=== PATIENT | female | born 1985 | race Hispanic/Latino ===

== ENCOUNTER 2021-03-26 21:47 | Emergency (ER) | payer OTHER ==
[2021-03-27 00:53] LABS: Urine Blood Negative (Negative); Urine Glucose Negative (Negative); Urine Protein 2+ (Negative); Urine Specific Gravity 1.015 (1.005-1.030); Urine pH >=9.0 (5.0-7.0)
[2021-03-27 00:53] LABS: Protime INR 0.97
[2021-03-27 00:54] LABS: Absolute Lymphocytes (CBC) 3.1 K/uL (0.7-4.9); Hematocrit 36.2 % (36.0-45.0); Lymphocytes % 17.7 % (15.3-44.8); MPV 7.9 fL (7.6-11.3); RBC Red Blood Cell Count 4.32 M/uL (3.86-4.86)
[2021-03-27] MEDS ORDERED: NA CHLORIDE 0.9% 1,000 ML ONE (00:58)
[2021-03-27] MEDS ORDERED: KETOROLAC 30 MG/ML INJ ONE (00:58)
[2021-03-27] MEDS ORDERED: ONDANSETRON 4 MG/2 ML VIAL ONE (00:58)
[2021-03-27 01:09] LABS: ALT/SGPT 24 U/L (12-78); AST/SGOT 12 U/L (15-37); Albumin 3.1 g/dL (3.4-5.0); Alkaline Phosphatase 131 U/L (45-117); BUN Blood Urea Nitrogen 9 mg/dL (7-18); Bicarbonate 24 mmol/L (21-32); Bilirubin Direct < 0.1 mg/dL (0-0.2); Bilirubin Total 0.1 mg/dL (0.2-1.0); Glucose Level 125 mg/dL (74-106); Magnesium 2.4 mg/dL (1.8-2.4); NT PRO-BNP 70 pg/mL (<125); Potassium 4.3 mmol/L (3.5-5.1); Protein, Total 7.5 g/dL (6.4-8.2); Sodium Level 139 mmol/L (136-145)
[2021-03-27 01:13] LABS: Urine Specific Gravity/Preg 1.015 (1.005-1.030)
[2021-03-27 03:45] LABS: Absolute Lymphocytes (CBC) 2.7 K/uL (0.7-4.9); Hematocrit 33.7 % (36.0-45.0); Lymphocytes % 16.2 % (15.3-44.8); RBC Red Blood Cell Count 4.03 M/uL (3.86-4.86)
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
[2021-03-27 05:59] VITALS: TEMP 98.1; O2SAT 98
[2021-03-27 06:05] VITALS: BP 128/85
--- NOTE | 2021-03-27 08:23 | EKG ---
Test Date: 2021-03-27 Test Time: 00:45:21 Photolettering Machine Operator: MEASUREMENT RESULTS: Intervals: Rate: 107 WA: 126 QRSD: 88 QT: 316 QTc: 421 Logan: P: 44 WA: 126 QRS: 47 T: -1 INTERPRETIVE STATEMENTS: Sinus tachycardia Nonspecific T wave abnormality Abnormal ECG No previous ECG available for comparison Electronically Signed On 03-27-21 08:22:18 WHITEWASHER by Santos Wilde
--- NOTE | 2021-03-27 08:29 | RAD REPORT ---
EXAM DESCRIPTION: RAD - Chest Single View - 03/26/2021 11:43 pm CLINICAL HISTORY: COUGH COMPARISON: None TECHNIQUE: AP portable chest image was obtained 03/26/2021 11:43 pm . FINDINGS: Portable exam has significant limitation due to shallow inspiration, under penetrated tech nique and very large body habitus. No peripheral mass or consolidations seen. Accentuated interstitia l pattern may be artifact of exam limitations or could indicate a mild interstitial edema or infiltra te. Heart and vasculature are normal. No measurable pleural effusion and no pneumothorax. No acute bony abnormality seen. No acute aortic findings suspected. IMPRESSION: Limited portable study showing no focal lung parenchymal process and no significant pulm onary edema. Mild interstitial edema or infiltrate could be masked by exam limitations.
--- NOTE | 2021-03-27 12:37 | RAD REPORT ---
EXAM DESCRIPTION: CT - Head Brain Wo Cont - 03/27/2021 6:07 am CLINICAL HISTORY: HEADACHE COMPARISON: None available TECHNIQUE: Axial CT of the head obtained from the skull apex to the skull base without contrast. Thi s exam was performed according to our departmental dose-optimization program, which includes automate d exposure control, adjustment of the mA and/or kV according to patient size and/or use of iterative reconstruction technique. FINDINGS: No acute intracranial hemorrhage identified. No mass, mass effect, shift of the midline, a bnormal extra-axial fluid collection or CT evidence of acute ischemic change identified. The ventricu lar system is unremarkable. No acute abnormalities of the supratentorial white matter, basal gangli a, cerebellum, or brainstem. The visualized paranasal sinuses and the mastoid air cells are relatively well aerated. No skull fr acture identified. Hyperdensity in the right globe likely related to postoperative change. Left rehana be is unremarkable.. IMPRESSION: 1. No acute intracranial abnormality identified. 2. Postoperative change suggesting vitrectomy of the right globe. Correlation for appropriate surgi ania history. Correlation for acuity is suboptimal due to lack of comparison imaging. Electronically signed by: Edwin Mccann 03/27/2021 12:15 AM PRINT PRODUCTION MANAGER Due to temporary technical issues with the PACS/Fluency reporting system, reports are being signed by the in house radiologists without review as a courtesy to insure prompt reporting. The interpreting radiologist is fully responsible for the content of the report.
--- NOTE | 2021-03-27 12:39 | RAD REPORT ---
EXAM DESCRIPTION: CT - Head angio - 03/27/2021 6:08 am CLINICAL HISTORY: Headache; Visual disturbances COMPARISON: CT Head/Brain Without Contrast 03/26/2021 at 11:40 PM TECHNIQUE: Head CTA axial images acquired after IV contrast. Coronal and sagittal CTA MIPs and MPRs created. 3D volume rendered images created. Exam performed according to departmental dose-optimizatio n program which includes automated exposure control, adjustment of mA and/or kV according to patient size, and/or use of iterative reconstruction technique. FINDINGS: Both intracranial vertebral, basilar, and both posterior cerebral arteries unremarkable. Both intracranial internal carotid, both middle cerebral, anterior communicating, and both anterior c erebral arteries unremarkable. No evidence of large intracranial arterial occlusion, aneurysm, or AVM. Right Lens postsurgical changes. IMPRESSION: Unremarkable CTA Head. Electronically signed by: Lalo Summers MD 03/27/2021 2:17 AM LEATHER SKINNER Due to temporary technical issues with the PACS/Fluency reporting system, reports are being signed by the in house radiologists without review as a courtesy to insure prompt reporting. The interpreting radiologist is fully responsible for the content of the report.
--- NOTE | 2021-03-27 12:52 | RAD REPORT ---
EXAM DESCRIPTION: CT - Neck Angio - 03/27/2021 6:08 am CLINICAL HISTORY: PAIN COMPARISON: None Available. TECHNIQUE: Multiple helical axial tomographic images were obtained of the neck following administrat ion of intravenous contrast per angiographic protocol. MIP reformatted images were obtained. This exa m was performed according to our departmental dose-optimization program, which includes automated exp osure control, adjustment of the mA and/or kV according to patient size and/or use of iterative recon struction technique. FINDINGS: Carotid and vertebral arterial vasculature of the neck appears patent without significant stenosis or occlusion. Retropharyngeal courses of the bilateral internal carotid arteries noted. Thyroid gland appears unremarkable. Salivary glands appear unremarkable. No evidence of adenopathy. R etropharyngeal space appears normal. Epiglottis appears normal. Larynx and vocal folds appear unremar kable. Atrophic right globe demonstrated. Visualized lungs are clear. Osseous structures are unremarkable. IMPRESSION: No evidence of significant arterial stenosis or occlusion within the neck. Electronically signed by: Tigre Patricia MD 03/27/2021 2:42 AM DIRECTOR QUALITY ASSURANCE Due to temporary technical issues with the PACS/Fluency reporting system, reports are being signed by the in house radiologists without review as a courtesy to insure prompt reporting. The interpreting radiologist is fully responsible for the content of the report.
== END 2021-03-27 04:22 | disposition home or self-care (01) ==
LOC: ER 21:47
DX: I10 Essential (primary) hypertension (principal); Z20.822 Contact with and (suspected) exposure to COVID-19; D72.829 Elevated white blood cell count, unspecified; E66.9 Obesity, unspecified; Z71.6 Tobacco abuse counseling; Z72.0 Tobacco use
CPT/HCPCS: 93005; 85025 ×2; 80048; 36415; 83735; 81025; 85610; 80076; 85652; 81003; 84484; 83880; 86140; 70450; 70496; 70498; 71045; U0003; Q9967; J7030; J2405

== ENCOUNTER 2021-11-03 10:51 | Emergency (ER) | payer OTHER ==
[2021-11-03 11:32] LABS: Urine Blood Negative (Negative); Urine Glucose Negative (Negative); Urine Protein Negative (Negative); Urine Specific Gravity >=1.030 (1.005-1.030); Urine pH 5.5 (5.0-7.0)
[2021-11-03 11:59] LABS: Absolute Lymphocytes (CBC) 2.5 K/uL (0.7-4.9); Hematocrit 34.5 % (36.0-45.0); Lymphocytes % 16.2 % (15.3-44.8); MCV 81.5 fL (80-100); MPV 7.8 fL (7.6-11.3); RBC Red Blood Cell Count 4.23 M/uL (3.86-4.86)
[2021-11-03 12:20] LABS: Potassium 4.1 mmol/L (3.5-5.1); Troponin High Sensitivity 5.9 pg/mL (<58.9)
--- NOTE | 2021-11-03 12:23 | RAD REPORT ---
EXAM DESCRIPTION: RAD - Chest Single View - 11/03/2021 11:59 am CLINICAL HISTORY: Dyspnea COMPARISON: Chest Single View dated 03/26/2021 FINDINGS: Lines: None. Lungs: No evidence of edema or pneumonia. Pleural: No significant pleural effusions or pneumothorax. Cardiac: The heart size is within normal limits. Mediastinum: Within normal limits. Bones: No acute fractures. Other: None IMPRESSION: No acute cardiopulmonary disease.
--- NOTE | 2021-11-03 12:58 | RAD REPORT ---
EXAM DESCRIPTION: US - Extrem Venous W Compress Arik - 11/03/2021 12:42 pm CLINICAL HISTORY: WEAKNESS COMPARISON: <Comparisons> TECHNIQUE: Real-time sonographic evaluation of the lower extremity deep venous systems was performed using color Doppler, grayscale, and compression. FINDINGS: Bilateral lower extremities. Normal compressibility, flow augmentation, phasic flow and spontaneous flow is identified in both the left and right lower extremity deep venous systems. No intraluminal filling defects seen. IMPRESSION: No DVT in either lower extremity.
--- NOTE | 2021-11-03 13:06 | RAD REPORT ---
EXAM DESCRIPTION: CT - Chest For Pe Angio - 11/03/2021 12:53 pm CLINICAL HISTORY: SOB COMPARISON: No comparisons TECHNIQUE: Dynamically enhanced axial 3 mm thick images of the chest were obtained during administra tion of <100> mL Isovue 370 IV contrast. Coronal and oblique reconstruction images were generated and reviewed. Exam utilizes a protocol for optimal evaluation of pulmonary arterial tree. Maximum intensity projections 3D imaging was utilized All CT scans are performed using dose optimization technique as appropriate and may include automated exposure control or mA/KV adjustment according to patient size. FINDINGS: Chest Wall: No suspicious thyroid nodules or pathologic lymphadenopathy. Lungs: No acute abnormality. 3 mm right upper lobe pulmonary nodules of doubtful clinical significanc e. 3 millimeters subpleural nodule in the right lower lobe is also of doubtful clinical significance. No consolidative airspace disease or edema. Pleura: No significant effusions or pneumothorax. Mediastinum/lisa: No pathologic lymphadenopathy. Pulmonary arteries/Aorta: No filling defect identified. No aortic aneurysm. Evaluation of the segment al and subsegmental pulmonary arteries is limited due to suboptimal contrast opacification. Heart: No significant pericardial effusion. Normal heart size. Upper abdomen: No acute abnormality. Bones: No acute abnormality. IMPRESSION: No central pulmonary embolus. Limited evaluation of the segmental and subsegmental pulmo nary arteries due to suboptimal contrast opacification. No other acute findings identified.
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
[2021-11-03] MEDS ORDERED: FUROSEMIDE 20 MG TABLET ONE (14:02)
[2021-11-03 14:14] VITALS: TEMP 98.6
[2021-11-03 14:17] VITALS: BP 129/85; O2SAT 97
--- NOTE | 2021-11-05 11:34 | EKG ---
Test Date: 2021-11-03 Test Time: 12:02:59 Commercial Manager: MEASUREMENT RESULTS: Intervals: Rate: 75 NM: 122 QRSD: 94 QT: 382 QTc: 426 Bradley: P: 20 NM: 122 QRS: 30 T: 32 INTERPRETIVE STATEMENTS: Normal sinus rhythm Normal ECG Compared to ECG 03/27/2021 00:45:21 Sinus tachycardia no longer present T-wave abnormality no longer present Electronically Signed On 11-05-21 11:32:42 CDT by Santos Wilde
== END 2021-11-03 13:58 | disposition home or self-care (01) ==
LOC: ER 10:51
DX: M79.89 Other specified soft tissue disorders (principal); R40.0 Somnolence; G47.30 Sleep apnea, unspecified; E66.9 Obesity, unspecified; Z68.43 Body mass index [BMI] 50.0-59.9, adult; E03.9 Hypothyroidism, unspecified; F17.210 Nicotine dependence, cigarettes, uncomplicated
CPT/HCPCS: 93005; 85025; 80048; 36415; 81025; 85379; 81003; 84484; 71275; 71045; 93970; 96372; 99284; Q9967; J1650

== ENCOUNTER 2022-04-08 14:17 | Emergency (ER) | payer OTHER ==
[2022-04-08 16:05] LABS: Absolute Lymphocytes (CBC) 2.6 K/uL (0.7-4.9); Hematocrit 38.6 % (36.0-45.0); Lymphocytes % 16.2 % (15.3-44.8); MCV 80.7 fL (80-100); MPV 7.9 fL (7.6-11.3); RBC Red Blood Cell Count 4.78 M/uL (3.86-4.86)
[2022-04-08 16:06] LABS: Protime INR 1.1
[2022-04-08 16:22] LABS: ALT/SGPT 19 U/L (13-56); AST/SGOT 12 U/L (15-37); Albumin 3.4 g/dL (3.4-5.0); Alkaline Phosphatase 133 U/L (45-117); BUN Blood Urea Nitrogen 10 mg/dL (7-18); Bicarbonate 28 mmol/L (21-32); Bilirubin Total 0.2 mg/dL (0.2-1.0); Glomerular Filtration Rate 83 ml/min (=/>90); Glucose Level 88 mg/dL (74-106); Magnesium 2.4 mg/dL (1.6-2.4); Protein, Total 7.9 g/dL (6.4-8.2); Sodium Level 140 mmol/L (136-145)
[2022-04-08 16:23] LABS: Bilirubin Direct < 0.1 mg/dL (0-0.2)
[2022-04-08 16:23] LABS: Urine Blood Negative (Negative); Urine Glucose Negative (Negative); Urine Protein Negative (Negative)
[2022-04-08 16:40] LABS: Thyroid Stimulating Hormone 4.19 uIU/mL (0.358-3.740)
--- NOTE | 2022-04-08 18:08 | RAD REPORT ---
EXAM DESCRIPTION: CT - Head Brain Wo Cont - 04/08/2022 5:35 pm CLINICAL HISTORY: Weakness and dizziness COMPARISON: 2021 TECHNIQUE: Computed axial tomography of the head was obtained. IV contrast was not requested. All CT scans are performed using dose optimization technique as appropriate and may include automated exposure control or mA/KV adjustment according to patient size. FINDINGS: An intracranial bleed is not seen The ventricles are normal in caliber No extra-axial fluid collection is noted. No significant hyperdensity within the brain. Deformed right globe Fluid within the sinuses/ mastoids is not seen. IMPRESSION: No acute intracranial abnormality is seen If patient's symptoms persist MRI of the brain would be recommended
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
[2022-04-08] MEDS ORDERED: NA CHLORIDE 0.9% 1,000 ML ONE (19:16)
[2022-04-08 20:50] VITALS: TEMP 98.2
[2022-04-08 21:07] VITALS: BP 142/92; O2SAT 98
== END 2022-04-08 20:13 | disposition home or self-care (01) ==
LOC: ER 14:17
DX: R53.1 Weakness (principal); R11.0 Nausea; R55 Syncope and collapse; F17.210 Nicotine dependence, cigarettes, uncomplicated
CPT/HCPCS: 93005; 85025; 80048; 36415; 83735; 81025; 85610; 82947; 80076; 85730; 84443; 81003; 84484; 84439; 70450; 96360; 99284; J7030

== ENCOUNTER 2023-10-18 06:46 | Emergency (ER) | payer OTHER ==
[2023-10-18] MEDS ORDERED: NA CHLORIDE 0.9% 1,000 ML ONE ×2 (07:23→08:37)
[2023-10-18] MEDS ORDERED: FAMOTIDINE 20 MG/2 ML VIAL IV ONE (07:23)
[2023-10-18 07:54] LABS: Absolute Basophils 0.2 K/uL (0-0.5); Absolute Eosinophils 0.4 K/uL (0-0.5); Absolute Lymphocytes (CBC) 3.3 K/uL (0.7-4.9); Absolute Monocytes 0.6 K/uL (0.1-1.3); Absolute Neutrophil 12.9 K/uL (1.8-8.0); Basophils % 1.1 % (0-1.3); Eosinophils % 2.1 % (0-4.4); Hematocrit 37.2 % (36.0-45.0); Hemoglobin 11.8 g/dL (12.0-15.0); Lymphocytes % 19.1 % (15.3-44.8); MCH 26.1 pg (27.0-35.0); MCHC 31.8 g/dL (32.0-36.0); MCV 82.2 fL (80-100); MPV 8.2 fL (7.6-11.3); Monocytes % 3.5 % (3.3-12.3); Neutrophils % 74.2 % (41.7-73.7); Nucleated RBC Absolute Count 0.1 (0-0); Nucleated Red Blood Cells % 0.3 % (0-0); Platelets 440 thou/uL (152-406); RBC Red Blood Cell Count 4.53 M/uL (3.86-4.86); Red Cell Distribution Width 18.2 % (12.1-15.2)
[2023-10-18 08:06] LABS: D-Dimer 0.378 FEUug/mL (0-0.500); PT Prothrombin Time 11.4 SECONDS (9.4-12.5); Protime INR 1.02
[2023-10-18 08:36] LABS: ALT/SGPT 39 U/L (13-56); AST/SGOT 24 U/L (15-37); Albumin 2.8 g/dL (3.4-5.0); Albumin/Globulin Ratio 0.6 (1.1-1.8); Alkaline Phosphatase 128 U/L (45-117); Anion Gap 6.7 mEq/L (5.0-15.0); BUN Blood Urea Nitrogen 13 mg/dL (7-18); Bicarbonate 29 mEq/L (21-32); Bilirubin Direct < 0.2 mg/dL (0-0.2); Bilirubin Indirect, Calculated 0.1 mg/dL (0.2-0.8); Bilirubin Total 0.3 mg/dL (0.2-1.0); Globulin 4.4 g/dL (2.3-3.5); Glomerular Filtration Rate 91 ml/min (=/>90); Glucose Level 136 mg/dL (74-106); Lipase 20 U/L (13-75); NT PRO-BNP 24 pg/mL (<125); Potassium 4.7 mEq/L (3.5-5.1); Protein, Total 7.2 g/dL (6.4-8.2); Sodium Level 137 mEq/L (136-145); Troponin High Sensitivity 3.9 pg/mL (<58.9)
[2023-10-18 08:44] LABS: Specific Gravity 1.023 (1.005-1.030); Sqamous Epithelial <5 /HPF (None Seen); Urine Bacteria None Seen /HPF (<20); Urine Bilirubin NEGATIVE (Negative); Urine Blood Negative (Negative); Urine Clarity Turbid (Clear); Urine Color Yellow (Yellow); Urine Culture Reflex Order NOT NEEDED; Urine Glucose NEGATIVE (Negative); Urine Ketones NEGATIVE (Negative); Urine Microscopic Reflex YN ORDER UMIC; Urine Mucus Slight /HPF (None Seen); Urine Nitrite NEGATIVE (Negative); Urine Protein TRACE (Negative); Urine RBC <5 /HPF (None Seen); Urine Urobilinogen Normal (Normal); Urine WBC <5 /HPF (<5); Urine pH 5.5 (5.0-7.0)
--- NOTE | 2023-10-18 08:54 | RAD REPORT ---
EXAM DESCRIPTION: RAD - Abdomen Acute Series - 10/18/2023 8:33 am CLINICAL HISTORY: EPIGASTRIC PAIN COMPARISON: Chest Single View dated 11/03/2021; Chest Single View dated 03/26/2021 FINDINGS: Nonobstructive bowel gas pattern. No acute osseous abnormality.The lungs are clear. Heart size is upper limits of normal but may be magnified by portable technique.No abnormal calcifications. IMPRESSION: Nonobstructive bowel gas pattern. No acute cardiopulmonary disease. No free air.
--- NOTE | 2023-10-18 09:04 | RAD REPORT ---
EXAM DESCRIPTION: US - Extrem Venous W Compress Arik - 10/18/2023 8:47 am CLINICAL HISTORY: PAIN COMPARISON: Extrem Venous W Compress Arik dated 11/03/2021 TECHNIQUE: Real-time sonographic evaluation of the lower extremity deep venous systems was performed using color Doppler, grayscale, and compression. FINDINGS: Bilateral lower extremities. Normal compressibility, flow augmentation, phasic flow and spontaneous flow is identified in both the left and right lower extremity deep venous systems. No intraluminal filling defects seen. IMPRESSION: No DVT in either lower extremity.
--- NOTE | 2023-10-18 09:10 | RAD REPORT ---
EXAM DESCRIPTION: US - Abdomen Exam Limited - 10/18/2023 8:47 am CLINICAL HISTORY: ABD PAIN COMPARISON: No comparisons FINDINGS: The gallbladder demonstrates no gallstones. No pericholecystic fluid or gallbladder wall t hickening. The common bile duct was not visualized. The liver demonstrates no findings of intrahepatic biliary dilatation. IMPRESSION: Negative for cholelithiasis or acute cholecystitis. Nonvisualized common bile duct.
--- NOTE | 2023-10-18 09:25 | RAD REPORT ---
EXAM DESCRIPTION: CTChest Abdomen Pelvis W Cont - 10/18/2023 9:12 am CLINICAL HISTORY: Abdominal distention;Chest pain;Cough;Dyspnea COMPARISON: Abdomen Exam Limited dated 10/18/2023 TECHNIQUE: CT of the chest, abdomen, and pelvis was performed with IV contrast. All CT scans are performed using dose optimization technique as appropriate and may include automated exposure control or mA/KV adjustment according to patient size. FINDINGS: Thorax: Chest Wall: No abnormal mass Lungs: Sub 4 mm bilateral pulmonary nodules that are almost certainly benign and do not require follo w-up. Pleura: No effusions or pneumothorax. Bailey/Mediastinum: No lymphadenopathy. Aorta/Pulmonary Arteries: Unremarkable Heart: Normal size. Abdomen/Pelvis: Liver: Hepatomegaly with steatosis. Biliary: No biliary ductal dilatation. Stomach: No significant focal abnormality. Duodenum: No significant focal abnormality. Pancreas: No significant abnormality. Spleen: No significant abnormality. Adrenal: No suspicious lesions. Kidney/ureter: No hydronephrosis. No renal calculi. Retroperitoneum: No retroperitoneal adenopathy. Vascular: No aneurysm. Bowel: No significant focal abnormality. Peritoneum: No ascites or free air. Bladder: Grossly unremarkable. Reproductive: No adnexal masses. Bones: Moderate left acetabular degenerative changes. Other: n/a IMPRESSION: No acute findings within the chest, abdomen, or pelvis. Hepatomegaly with steatosis.
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
[2023-10-18] MEDS ORDERED: levoFLOXacin 750 MG TAB ONE (10:26)
[2023-10-18] MEDS ORDERED: HYDROCODONE/APAP 10/325 TAB ONE (10:49)
[2023-10-18 11:23] VITALS: TEMP 98.3
[2023-10-18 11:24] VITALS: O2SAT 97
[2023-10-18 11:25] VITALS: BP 126/77
== END 2023-10-18 11:15 | disposition home or self-care (01) ==
LOC: ER 06:46
DX: R10.84 Generalized abdominal pain (principal); J45.30 Mild persistent asthma, uncomplicated; Z71.6 Tobacco abuse counseling; Z72.0 Tobacco use; D72.829 Elevated white blood cell count, unspecified; H57.11 Ocular pain, right eye; E66.9 Obesity, unspecified; Z68.44 Body mass index [BMI] 60.0-69.9, adult
CPT/HCPCS: 96361; 85025; 81001; 80048; 36415; 83735; 81025; 85610; 85379; 80076; 84484; 83690; 83880; 71260; 74177; 74022; 93970; 76705; 96374; 99284; Q9967; J7030 ×2; 93005